=== PATIENT | male | born 1970 | race Caucasian/White ===

== ENCOUNTER 2017-10-24 11:16 | Emergency (ER) | payer BC ==
--- NOTE | 2017-10-24 12:02 | EDPHY ---
HPI/HX/ROS/PE/MDM Narrative: CHIEF COMPLAINT: Numbness in left arm, neck pain HPI: The patient is a 47 y/o male with a history of ulcerative colitis complaining of numbness in his left arm and neck pain onset about 12 hours ago. The numbness extends from his neck down into his fingers is associated with some anxiety. He was unable to fall back asleep and symptoms have persisted this morning. He has the slightest sensation of possible numbness along the left side of his face now too. He has a history of an injury to his left elbow resulting in occasional numbness from his elbow to his hand, but has not previously had numbness exactly in this pattern from his neck into his fingertips. He denies recent heavy lifting or trauma, but did go for a run Friday and Friday for the first time in a while and felt poorly afterwards. Yesterday he briefly had some transient mild blurred vision while looking at his computer screens at work without vision cuts or spots. REVIEW OF SYSTEMS: Aside from elements discussed in the HPI, a comprehensive 10-point review of systems was reviewed and is negative. PMH: Ulcerative colitis - in remission for 1.5 years, maybe pre-diabetic SOCIAL HISTORY: Employed in [employer]. Has PCP. PHYSICAL EXAM: General:Patient is alert, in no acute distress. ENT:Eyes are normal to inspection. ENT inspection normal. Neck: Mild tenderness left lateral neck. Full range of motion. Respiratory:No respiratory distress. Breath sounds normal bilaterally. Cardiovascular: Regular rate and rhythm. Strong peripheral pulses. Normal cap refill. Abdomen:The abdomen is nontender to palpation. There are no peritoneal signs. Back: Normal to inspection. No tenderness to palpation. Skin: Normal color. No rash. Warm and dry. Extremities: Normal appearance. Full range of motion. Neuro: Oriented x3. Normal motor function. Normal sensory function. No pronator drift. Normal [id number]. Face symmetric. Normal [id number]. ED Course: This is a healthy 47 y/o male who presents with a 12-hour history of neck pain with numbness down his shoulder into his fingers and slight sensation of numbness in the left side of his face. His neuro exam is unremarkable. Presentation most likely indicates a cervical radiculopathy, but patient would like to rule out acute stroke and cardiac etiology as well. Plan for IV, labs, EKG, head and neck CTs and CTAs. 1L IV NS ordered. The 12 lead EKG was interpreted by myself. Sinus rhythm rate 60. See hard copy and/or "tracemaster" electronic copy for interpretation. Labs unremarkable. Head CT is negative for acute process. Neck CT shows degenerative disc disease, which is likely contributing to patient's symptoms today. Reassessed patient and discussed findings. Recommended treating for cervical radiculopathy for Medrol dosepack and neurosurgery follow up. Return precautions discussed. He is comfortable with this plan. MDM: This patient presents with left arm and neck numbness that seems most consistent with cervical radiculopathy. CT/CTA were performed to rule out cartoid or vertebral dissection as well brain pathology. These studies are negative. Patient comfortable with plan for outpatient workup. - Data Points Imaging: Discussed imaging studies w/ train caller Radiologist, I viewed and interpreted images myself Laboratory Results: Laboratory Results 10/24/17 12:30 10/24/17 12:30 10/24/17 10/24/17 10/24/17 12:37 12:30 12:30 WBC 7.14 10^3/uL 10^3/uL (3.80-9.50) RBC 5.80 10^6/uL 10^6/uL (4.40-6.38) Hgb 17.7 g/dL H g/dL (13.7-17.5) Hct 51.7 % H % (40.0-51.0) MCV 89.1 fL fL (81.5-99.8) MCH 30.5 pg pg (27.9-34.1) MCHC 34.2 g/dL g/dL (32.4-36.7) RDW 12.6 % % (11.5-15.2) Plt Count 222 10^3/uL 10^3/uL (150-400) MPV 10.6 fL fL (8.7-11.7) Neut % (Auto) 66.3 % % (39.3-74.2) Lymph % (Auto) 24.2 % % (15.0-45.0) [place] % (Auto) 7.4 % % (4.5-13.0) Eos % (Auto) 1.0 % % (0.6-7.6) Baso % (Auto) 0.7 % % (0.3-1.7) Nucleat RBC Rel Count 0.0 % % (0.0-0.2) Absolute Neuts (auto) 4.73 10^3/uL 10^3/uL (1.70-6.50) Absolute Lymphs (auto) 1.73 10^3/uL 10^3/uL (1.00-3.00) Absolute Monos (auto) 0.53 10^3/uL 10^3/uL (0.30-0.80) Absolute Eos (auto) 0.07 10^3/uL 10^3/uL (0.03-0.40) Absolute Basos (auto) 0.05 10^3/uL 10^3/uL (0.02-0.10) Absolute Nucleated RBC 0.00 10^3/uL 10^3/uL (0-0.01) Immature Gran % 0.4 % % (0.0-1.1) Immature Gran # 0.03 10^3/uL 10^3/uL (0.00-0.10) Sodium 143 mEq/L mEq/L (135-145) Potassium 4.4 mEq/L mEq/L (3.3-5.0) Chloride 101 mEq/L mEq/L (97-110) Carbon Dioxide 27 mEq/l mEq/l (22-31) Anion Gap 15 mEq/L mEq/L (8-16) BUN 12 mg/dL mg/dL (7-23) Creatinine 1.0 mg/dL mg/dL (0.7-1.3) Estimated GFR > 60 Glucose 90 mg/dL mg/dL (70-100) Calcium 9.7 mg/dL mg/dL (8.5-10.4) POC Troponin I 0.01 ng/mL ng/mL (0.00-0.08) Medications Given: Discontinued Medications Sodium Chloride (Ns) 1,000 mls @ 0 mls/hr IV EDNOW ONE; Wide Open PRN Reason: Protocol Stop: 10/24/17 12:12 Last Admin: 10/24/17 12:28 Dose: 1,000 mls Point of Care Test Results: Chemistry 10/24/17 12:37 POC Troponin I 0.01 ng/mL ng/mL (0.00-0.08) General Time Seen by Provider: 10/24/17 11:37 Initial Vital Signs: Initial Vital Signs Temperature (C) 36.7 C 10/24/17 11:23 Heart Rate 66 10/24/17 11:23 Respiratory Rate 16 10/24/17 11:23 Blood Pressure 156/107 H 10/24/17 11:23 O2 Sat (%) 98 10/24/17 11:23 O2 Delivery Mode Room Air Allergies/Adverse Reactions: No Known Allergies Allergy (Verified 10/24/17 11:22) Home Medications: Medication Instructions Recorded methylPREDNISolone [Medrol Dose 1 each PO AD #1 ea 10/24/17 Renzo] Departure - Departure Disposition: Home, Routine, Self-Care Clinical Impression: Cervical radiculopathy Condition: Good Instructions: Methylprednisolone (By mouth), Cervical Radiculopathy (ED) Additional Instructions: 1. Take Medrol dosepak as prescribed for symptoms. Be sure to complete the entire prescription. 2. You can also take 600mg ibuprofen every 8 hours over the next few days. 3. You can try applying an ice pack or heating pad intermittently to sore areas if helpful for pain. 4. Follow up with neurosurgery next week for reevaluation. 5. Return to the ED for severe pain, weakness in an extremity or worsening numbness, fever, severe headache or vision changes, or other worsening of condition. Referrals: Jaswant Vigil MD [Primary Care Provider] - As per Instructions Ata Fuchs MD [Medical Doctor] - As per Instructions Prescriptions: methylPREDNISolone [Medrol Dose Renzo] 1 each PO AD #1 ea Report Scribed for: Dewey Garcia Report Scribed by: Melisa Brush Date of Report: 10/24/17 Time of Report: 11:50 Physician Review and Approval Statement: Portions of this note were transcribed by an ED scribe. I personally performed the history, physical exam, and medical decision making; and confirm the accuracy of the information in the transcribed note.
[2017-10-24] MEDS ORDERED: NS 1,000 ML IV ONE (12:11)
--- NOTE | 2017-10-24 12:42 | CPEKG ---
Heart Rate: 60 RR Interval: 1000 P-R Interval: 147 QRSD Interval: 90 QT Interval: 412 QTC Interval: 412 P [place]: -30 QRS [place]: 43 T Wave [place]: 28 EKG Severity - NORMAL ECG - EKG Impression: SINUS RHYTHM Electronically Signed By: Maral Whiteside 26-Oct-2017 14:59:29
[2017-10-24 12:44] LABS: PLATELET COUNT 222 10^3/uL (150-400)
[2017-10-24] MEDS ORDERED: IOPAMIDOL (ISOVUE 370) 100 ML BTL IV ONE (13:13)
[2017-10-24 14:56] VITALS: BP 133/87
== END 2017-10-24 14:54 | disposition home or self-care (01) ==
DX: M54.12 Radiculopathy, cervical region (principal); E86.9 Volume depletion, unspecified
CPT/HCPCS: 84484-PO; Q9967

== ENCOUNTER → 2017-11-04 | Outpatient (CLI) | payer BC | LOC: FIMAGING 09:22 | PROVIDERS: ATTEND Family Medicine | DX: M54.12 Radiculopathy, cervical region (principal); M50.30 Other cervical disc degeneration, unspecified cervical region; G95.20 Unspecified cord compression; M25.78 Osteophyte, vertebrae; M48.02 Spinal stenosis, cervical region; M51.24 Other intervertebral disc displacement, thoracic region; M48.04 Spinal stenosis, thoracic region; S22.040D Wedge compression fracture of fourth thoracic vertebra, subsequent encounter for fracture with routine healing ==